=== PATIENT | female | born 1935 | race Caucasian/White ===

== ENCOUNTER 2023-01-22 12:15 | Emergency (ER) | payer OTHER ==
[2023-01-22 12:47] LABS: VENOUS BASE EXCESS -2.6 mmol/L (-2-2); VENOUS O2 SATURATION 76.7 % (70-80); VENOUS PCO2 37.3 mmHg (38-52); VENOUS PH 7.385 (7.310-7.410)
[2023-01-22 12:49] LABS: BASO % 0.2 % (0-2.0); HEMATOCRIT 44.5 % (32.4-45.2); HEMOGLOBIN 15.4 GM/dL (10.7-15.3); MCH 32.7 pg (25.7-33.7); MCHC 34.5 g/dl (32.0-36.0); MEAN CELL VOLUME 94.7 fl (80-96); MEAN PLT VOLUME 8.8 fl (7.5-11.1); MONO % 6.4 % (3.8-10.2); NEUT % 88.4 % (42.8-82.8); PLATELET COUNT 240 10^3/uL (134-434); RDW 13.5 % (11.6-15.6); WHITE BLOOD COUNT 12.7 K/mm3 (4.0-10.0)
[2023-01-22 12:56] LABS: INR 1.1 (0.83-1.09); PROTHROMBIN TIME (PATIENT) 12.8 SEC (9.7-13.0)
[2023-01-22 12:58] LABS: ACTIVATED PTT 27.7 SECONDS (25.2-36.5)
[2023-01-22 13:03] VITALS: BMI 23.0
[2023-01-22 13:22] LABS: POTASSIUM 3.9 mmol/L (3.5-5.1)
[2023-01-22 13:24] LABS: ALBUMIN 3.9 g/dl (3.4-5.0); BLOOD UREA NITROGEN 18.4 mg/dL (7-18)
[2023-01-22 13:27] LABS: CREATININE 0.8 mg/dL (0.55-1.3)
[2023-01-22 13:29] LABS: TOT PROT 7.6 g/dl (6.4-8.2)
[2023-01-22 13:49] LABS: EPI CELLS 15 /uL (0-25.1); HYALINE CASTS 1 /uL (0-3.1); URINE APPEARANCE CLEAR; URINE BACTERIA 11 /uL (0-1359); URINE BILIRUBIN NEGATIVE (NEGATIVE); URINE COLOR YELLOW; URINE GLUCOSE (UA) TRACE (NEGATIVE); URINE KETONE 1+ (NEGATIVE); URINE LEUK ESTERASE NEGATIVE (NEGATIVE); URINE NITRITE NEGATIVE (NEGATIVE); URINE PROTEIN 2+ (NEGATIVE); URINE RBC 66 /uL (0-23.9); URINE UROBILINOGEN 0.2 mg/dL (0.2-1.0); URINE WBC 7 /uL (0-25.8)
[2023-01-22] MEDS ORDERED: SODIUM CHLORIDE 0.9% 500 ML INFUS.BAG IV ONE (17:47)
[2023-01-22 18:26] VITALS: BP 148/73; PULSE 66; RESP 20; TEMP 97.6
== END 2023-01-22 19:16 | disposition short-term general hospital (02) ==
LOC: JER 12:15
DX: I63.9 Cerebral infarction, unspecified (principal); I61.8 Other nontraumatic intracerebral hemorrhage; Z20.822 Contact with and (suspected) exposure to COVID-19
CPT/HCPCS: 0241U-QW; 36415; 70450-TC; 70496-TC; 70498-TC; 71045-TC-FY; 80053; 81003; 82550; 82553; 82803; 82962; 83605; 85025; 85610; 85730; 86850; 86900; 86901; 87040; 87086; 93005; 93010; 99285-25; Q9967